=== PATIENT | female | born 1950 | race Caucasian/White ===

== ENCOUNTER 2024-09-06 12:09 | Inpatient (IN) ==
[2024-09-06 13:01] LABS: Basophils # (auto) 0.06 K/uL (0.00-0.20); Basophils % (auto) 0.8 %; Eosinophils # (auto) 0.16 K/uL (0.00-0.50); Eosinophils % (auto) 2.1 %; Hematocrit (blood only) 33.8 % (37.0-47.0); Hemoglobin 12.3 g/dl (12.0-16.0); Immature Granulocytes # (auto) 0.08 K/uL (0.01-0.20); Immature Granulocytes % (auto) 1.1 %; Lymphocytes # (auto) 1.93 K/uL (1.20-3.40); Lymphocytes % (auto) 25.7 %; Mean Corpuscular Hgb Conc 36.4 g/dL (32.0-36.0); Mean Platelet Volume 9.3 fL (9.4-12.4); Monocytes # (auto) 0.76 K/uL (0.11-0.59); Monocytes % (auto) 10.1 %; Neutrophils # (auto) 4.52 K/uL (1.40-6.50); Neutrophils % (auto) 60.2 %; Platelet Count 332 K/uL (130-400); RDW Coefficient of Variation 13.4 % (11.5-14.5); Red Blood Count 3.84 M/uL (4.20-5.40); White Blood Count 7.51 K/ul (4.8-10.8)
[2024-09-06 13:18] LABS: Albumin Globulin Ratio 1.1 (0.9-2); Albumin Level 3.5 gm/dl (3.4-5.0); Bilirubin,Total 0.4 mg/dl (0.2-1.0); Calcium 9.5 mg/dl (8.6-10.3); Globulin 3.3 gm/dl (2.5-4.0); Potassium 3.8 mmol/L (3.5-5.1); Total Protein 6.8 gm/dl (6.0-8.3)
[2024-09-06] MEDS ORDERED: VANCOMYCIN CONSULT ACTIVE PRN (14:07)
--- NOTE | 2024-09-06 14:12 | Emergency Department Note ---
History of Present Illness General Chief complaint: Referred by Doctor Stated complaint: REF BY DOC,NEED IV ANTIBOTIC Time Seen by Provider: 09/06/24 13:59 History of Present Illness This is a 74-year-old female who presents to the emergency department via private vehicle referred by PCP for "IV antibiotics/admission". The patient notes that 1 week ago she began with a small spot to the right anterior pretibial soft tissues. No trauma. No injury. She was traveling and was in [place]. She notes this past Friday the area continued to enlarge more and more. Pain was also increasing in the right anterior pretibial soft tissues. She does have some photodocumentation of this progression. She notes that morning she had fevers, chills and saw PCP. She was prescribed Keflex. She also had ceftriaxone dose on Friday, again Friday with home health at home and then ertapenem yesterday. She had a follow-up today with PCP and was referred in noting continuation of symptoms despite antibiotic therapy in the outpatient setting. Patient notes Tmax 101.5 F, last of which was on Friday. She notes she is otherwise healthy and denies any pertinent past medical history, surgeries or allergies. Currently on losartan and levothyroxine. Home Medications Medication Instructions Recorded Confirmed Type levothyroxine 75 mcg capsule 75 mcg PO DAILY 09/25/23 09/06/24 History dgldjjb-grusdzein-ebxuijm D2 500 1 tab PO DAILY 09/06/24 09/06/24 History mg-50 mg-100 unit chewable tablet losartan 50 mg tablet 50 mg PO DAILY 09/06/24 09/06/24 History Allergies Allergy/AdvReac Type Severity Reaction Status Date / Time No Known Allergies Allergy Verified 09/25/23 11:20 Past Med/Surg History Problem List (Updated 09/06/24 @ 23:39 by Lj Yoder PA-C) Cellulitis of right lower extremity (Acute) Medical History (Updated 09/06/24 @ 23:39 by Lj Yoder PA-C) Hypertension Family history of melanoma History of nonmelanoma skin cancer Age-related osteoporosis without current pathological fracture Actinic keratoses Dyslipidemia Hypothyroidism Surgical History (Updated 09/06/24 @ 14:34 by CALIXTO Rodriguez) H/O colonoscopy Family History (Updated 09/06/24 @ 14:35 by CALIXTO Rodriguez) Mother , 92y Cancer skin cancer Brother Diabetes Social History (Updated 09/06/24 @ 15:44 by CALIXTO Rodriguez) Smoking Status: Never smoker Hx Alcohol Use: No Hx Substance Use: No Preferred Language: Northern Irish Communication Ability: Effective 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 Beliefs That Will Affect Care: None Current Living Situation: Spouse current occupational status: retired Other Information That Helps Us Care for You: 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: Yes Safety Concerns: Feels Safe At This Time Assistive Devices: Glasses Review of Systems A total of 10 systems reviewed and were otherwise negative Physical Exam Vital Signs Vital Signs - 24 hr 09/06/24 12:26 09/06/24 14:00 Temperature 36.9 C Temperature Source Oral Pulse Rate 68 Respiratory Rate 16 Respiratory Effort / Characteristics Non-Labored Spontaneous Respiratory Depth Normal Blood Pressure 153/97 H Blood Pressure Mean 115 Pulse Oximetry 96 Oxygen Delivery Method Room Air Sepsis Recent Fever Within 48 Hours No Sepsis New/Unexplained Change in Mental Status No Sepsis Action Taken by Nursing No Action Required VITAL SIGNS - Vital signs and nursing notes were reviewed. Stable. GENERAL -74-year-old female appearing her stated age who is in no acute distress. Communicates well with provider and answers questions appropriately. SKIN -there is an area of erythema noted to the right anterior pretibial soft tissues with a central, 1 cm scabbed region. Skin marking pen does surround the erythematous regions in different tiers as there are different shades of erythema. No crepitus. No fluctuance. No active drainage. Please see picture below. Verbal consent was obtained prior to obtaining the picture. HEAD - NC/AT. EYES - PERRL with EOMI bilaterally. Sclera anicteric. NOSE - Midline and without cyanosis. No epistaxis or purulent drainage noted. MOUTH/OROPHARYNX - Without perioral cyanosis. NECK - Neck with FROM. No nuchal rigidity. LUNGS - CTA CARDIAC - RRR ABDOMEN - Abdominal contour normal without pulsations or visible masses. BS normoactive all four quadrants. No tenderness, palpable masses, hepatosplenomegaly, or ascites noted. EXTREMITIES - No clubbing or peripheral cyanosis. +5/5 strength noted in UE/LE bilaterally. NEUROLOGIC - Cranial nerves II through XII grossly intact. PSYCH -alert, oriented and pleasant on exam Course Administered Medications Heparin Sodium (Porcine) (Heparin Sod 5,000 Unit/0.5 Ml Vial) 5,000 units SQ Q12 VI Stop: 10/06/24 20:59 Last Admin: 09/06/24 21:31 Dose: 5,000 units Documented By: MELINDA Cefazolin Sodium (Ancef 2000mg) 2,000 mg in 15 mls @ 3.75 mls/min IV Q8H VI Stop: 09/13/24 22:59 Last Admin: 09/06/24 23:10 Dose: 3.75 mls/min Documented By: MELINDA Doxycycline Hyclate 100 mg/ (Dextrose) 100 mls @ 50 mls/hr IV Q12H VI Stop: 09/16/24 19:29 Last Infusion: 09/06/24 21:54 Dose: Infused Documented By: Admin: 09/06/24 19:52 Dose: 50 mls/hr Documented By: KERLINE Discontinued Medications Ceftriaxone Sodium (Rocephin) 2,000 mg in 50 mls @ 100 mls/hr IV NOW STA Stop: 09/06/24 14:36 Last Infusion: 09/06/24 17:28 Dose: Infused Documented By: Admin: 09/06/24 15:13 Dose: 100 mls/hr Documented By: KERLINE Vancomycin HCl 1,500 mg/ (Sodium Chloride) 530 mls @ 200 mls/hr IV NOW ONE Stop: 09/06/24 16:45 Last Infusion: 09/06/24 19:22 Dose: Infused Documented By: Admin: 09/06/24 15:05 Dose: 200 mls/hr Documented By: KERLINE Cefazolin Sodium (Ancef 2000mg) 2,000 mg in 15 mls @ 3.75 mls/min IV Q8H VI Stop: 09/13/24 15:14 Last Admin: 09/06/24 16:33 Dose: Not Given Documented By: KERLINE Medical Decision Making Laboratory Data 09/06/24 12:35 09/06/24 12:35 Lab Results 09/06/24 09/06/24 Range/Units 12:35 14:47 WBC 7.51 (4.8-10.8) K/ul RBC 3.84 L (4.20-5.40) M/uL Hgb 12.3 (12.0-16.0) g/dl Hct 33.8 L (37.0-47.0) % MCV 88.0 (80.0-100.0) fL MCH 32.0 (25.0-34.0) pg MCHC 36.4 H (32.0-36.0) g/dL RDW Std Deviation 43.0 (36.4-46.3) fL RDW Coeff of Amarilis 13.4 (11.5-14.5) % Plt Count 332 (130-400) K/uL MPV 9.3 L (9.4-12.4) fL Immature Gran % (Auto) 1.1 % Neut % (Auto) 60.2 % Lymph % (Auto) 25.7 % [place] % (Auto) 10.1 % Eos % (Auto) 2.1 % Baso % (Auto) 0.8 % Neut # (Auto) 4.52 (1.40-6.50) K/uL Lymph # (Auto) 1.93 (1.20-3.40) K/uL [place] # (Auto) 0.76 H (0.11-0.59) K/uL Eos # (Auto) 0.16 (0.00-0.50) K/uL Baso # (Auto) 0.06 (0.00-0.20) K/uL Immature Gran # (Auto) 0.08 (0.01-0.20) K/uL Sodium 135 L (136-145) mmol/L Potassium 3.8 (3.5-5.1) mmol/L Chloride 102 (98-107) mmol/L Carbon Dioxide 25 (21-32) mmol/L Anion Gap 8 (3-11) BUN 15 (6-23) mg/dl Creatinine 0.75 (0.6-1.2) mg/dl Est Cr Clr Drug Dosing 64.0 ml/min eGFR 83.49 BUN/Creatinine Ratio 20.0 (10-20) Glucose 140 H (70-99(Fasting)) mg/dl Calcium 9.5 (8.6-10.3) mg/dl Total Bilirubin 0.4 (0.2-1.0) mg/dl AST 20 (13-39) U/L ALT 20 (7-52) U/L Alkaline Phosphatase 101 (34-104) U/L Total Protein 6.8 (6.0-8.3) gm/dl Albumin 3.5 (3.4-5.0) gm/dl Globulin 3.3 (2.5-4.0) gm/dl Albumin/Globulin Ratio 1.1 (0.9-2) Procalcitonin < 0.02 (0-0.5) ng/ml Lyme Disease Screen Equivocal H (Negative) Lyme Tier 2 IgG Confirm Positive H (Negative) Lyme Tier 2 IgM Confirm Positive H (Negative) Imaging Data Radiologist's Impression: Venous Doppler Study 09/06/24 14:09 EXAM: US venous doppler LE RT CLINICAL HISTORY: Right leg cellulitis, edema, rule out DVT. TECHNIQUE: Ultrasound examination of the right lower extremity veins was performed in real time and duplex. One or more of the following were performed: spectral analysis, resistive index, waveform analysis, and pulsed Doppler. COMPARISON: None. FINDINGS: Normal phasic, non-pulsatile, and spontaneous flow is noted in the right common femoral, superficial femoral, popliteal and posterior, anterior tibial, and peroneal veins. Visualized veins of the right lower extremity demonstrate normal compressibility. No sonographic evidence of acute deep vein thrombosis (DVT) is detected in the visualized veins of the right lower extremity. Compression and Augmentation: All evaluated veins compress fully with applied transducer pressure. Augmentation of venous flow is noted with distal compression. IMPRESSION: No sonographic evidence of acute DVT detected in right common femoral, superficial femoral, popliteal, and posterior, anterior tibial, and peroneal veins, at the time of examination. Disclaimer: DVT could be missed early in the disease when clot burden is minimal. For patients with moderate and high pretest probability of DVT and negative ultrasound, the [employer] clinical guidelines recommend testing with a D-dimer assay or repeat ultrasound in 5-7 days. If symptoms worsen, the Society of Radiologists in ultrasound recommends repeating ultrasound even earlier. Electronically signed by Raymundo Taylor 09-06-2024 4:59 PM Tibia/Fibula X-Ray 09/06/24 14:10 XR tibia fibula RT 2V CLINICAL HISTORY: R leg infection COMPARISON: None FINDINGS: No fracture or dislocation. No radiopaque foreign body. No evidence of osteomyelitis. IMPRESSION: No acute osseous finding seen. ACT 112: Negative or not required by law. Electronically signed by: Luis Jay M.D. 09/06/2024 2:34 PM MDM Narrative Patient was seen and evaluated as above in room C1. Review was performed of triage nursing notes and vital signs. After obtaining a thorough history and physical examination the above work up was performed. Patient presents to us today for evaluation of ongoing right lower extremity edema and erythema. Please refer to the picture above in the PE section. Patient has had outpatient antibiotics and continues with symptoms. She was referred in for IV antibiotics. Options of care were discussed with the patient. IV access was established. Labs were drawn. There is no leukocytosis or concerning anemia. No emergent metabolic disturbance. Mild hyperglycemia 140 and hyponatremia 135. Noting the duration of patient's symptoms despite outpatient therapy I do believe that further evaluation and management in the inpatient setting is warranted. IV ceftriaxone and IV vancomycin ordered. She has only had 2 doses of ceftriaxone thus far. I do believe is reasonable to continue but add MRSA coverage. I did order IV ceftriaxone as well as IV vancomycin for broad coverage. It is felt that the benefit of the medication outweighed risk. Case discussed with the hospitalist service. Please refer to further documentation regarding her stay. The x-ray and ultrasound were pending at time of discussion with the hospitalist, but were reviewed and ultrasound negative for DVT. X-ray negative for soft tissue gas or radiographic evidence of osteomyelitis per my interpretation. Please refer to further documentation regarding her stay. At this time Lyme testing is pending as are blood cultures. GCS: 15 In the evaluation and treatment of this patient the following differential diagnoses were entertained: Necrotizing fasciitis, osteomyelitis, cellulitis, abscess, among others. Impression & Plan Cellulitis of right lower extremity Discharge Plan Visit Data Chief Complaint: Referred by Doctor Stated Complaint: REF BY DOC,NEED IV ANTIBOTIC ED Provider: Josef Verde ED Midlevel Provider: Lj Yoder Discharge Problem: Cellulitis of right lower extremity Patient Disposition: Admitted As Inpatient Condition: Good Discharge Instructions Interventions: ED Discharge Assessment Last Done: 09/06/24 19:07
--- NOTE | 2024-09-06 14:35 | XRay Report ---
XR tibia fibula RT 2V CLINICAL HISTORY: R leg infection COMPARISON: None FINDINGS: No fracture or dislocation. No radiopaque foreign body. No evidence of osteomyelitis. IMPRESSION: No acute osseous finding seen. ACT 112: Negative or not required by law. Electronically signed by: Luis Jay M.D. 09/06/2024 2:34 PM
--- NOTE | 2024-09-06 14:50 | History & Physical Report ---
Date of Service September 06, 2024 Assessment & Plan (1) Cellulitis of right lower extremity: (2) Hypertension: (3) Hypothyroidism: Plan 74 year old female with PMH significant for hypertension, hypothyroidism, dyslipidemia, osteoporosis, and history of nonmelanoma skin cancer who presents to the ED today and is being admitted for worsening right lower leg cellulitis. Cellulitis RLE Unresponsive to oral keflex, IM rocephin, and IM ertapenem outpatient No leukocytosis and vitals stable, patient febrile at home with last fever 2 days ago Lyme screen pending Received ceftriaxone and vancomycin in ED Order cefazolin q8hr, discontinue vanco Tibia/fibula x-ray negative for fracture Obtain RLE duplex to rule out DVT Follow blood cultures Elevate RLE Hypertension Continue losartan Hypothyroidism Continue levothyroxine DVT Prophylaxis: SCDs to LLE Code Status: FULL CODE - As per discussion at bedside with the patient. PCP: Odilia Denny DO Disposition: admit to med surg Patient seen in collaboration with Dr Beebe. Please see addendum. I spent a total of 60 minutes coordinating, documenting and providing care for this patient excluding time spent in the performance of separately billed services or time spent by another provider/QHP. Admission and Anticipated Discharge Date Admission Date: 09/06/2024 History of Present Illness Chief Complaint: cellulitis Primary Care Provider: Odilia Denny DO 74 year old female with PMH significant for hypertension, hypothyroidism, dyslipidemia, osteoporosis, and history of nonmelanoma skin cancer who presents to the ED today with right lower leg cellulitis. Patient reports she noticed a small red area on her right he about 10 days ago while in [place] that she initially thought was a mosquito bite. She denies any trauma to her skin. The area then increased in redness, itchiness, warmth, and became painful to the touch. She was initially prescribed Keflex and was icing the area and applying cortisone and Neosporin without relief. Then she developed a fever of 101F and body aches, which prompted her to seek evaluation. She was seen by her PCP on Sunday 09/03 who administered IM Rocephin and arranged for two additional home doses through [facility] over the weekend. Yesterday, the home nurse noted worsening redness and swelling and administered Ertapenem IM instead of Rocephin. Patient had a follow up visit today with her PCP and was referred to the ED due to no improvement. She reports her last fever was on Friday night and she felt in her usual state of health yesterday. Notes a slight sore throat that is relieved by fluids. Allergies Allergy/AdvReac Type Severity Reaction Status Date / Time No Known Allergies Allergy Verified 09/25/23 11:20 Home Medications Medication Instructions Recorded Confirmed Type levothyroxine 75 mcg capsule 75 mcg PO DAILY 09/25/23 09/06/24 History ckkippx-tpqwzkfyk-ycnhukj D2 500 1 tab PO DAILY 09/06/24 09/06/24 History mg-50 mg-100 unit chewable tablet losartan 50 mg tablet 50 mg PO DAILY 09/06/24 09/06/24 History Past Med/Surg History Problem List (Updated 09/06/24 @ 14:49 by CALIXTO Rodriguez) Cellulitis of right lower extremity Medical History (Updated 09/06/24 @ 14:49 by CALIXTO Rodriguez) Hypertension Family history of melanoma History of nonmelanoma skin cancer Age-related osteoporosis without current pathological fracture Actinic keratoses Dyslipidemia Hypothyroidism Surgical History (Updated 09/06/24 @ 14:34 by CALIXTO Rodriguez) H/O colonoscopy Family History (Updated 09/06/24 @ 14:35 by CALIXTO Rodriguez) Mother , 92y Cancer skin cancer Brother Diabetes Social History (Updated 09/06/24 @ 15:44 by CALIXTO Rodriguez) Smoking Status: Never smoker Hx Alcohol Use: Yes Preferred Language: Upper Sorbian Communication Ability: Effective Current Living Situation: Spouse current occupational status: retired other: retired EMT Feels Safe at Home: Yes Review of Systems Review of Systems: All systems reviewed & are unremarkable except as noted in HPI & below Physical Exam Physical Exam: General/Psych: WD/WN, sitting up in bed, NAD, conversing easily Head: normocephalic, atraumatic Eyes: normal inspection, PERRL, conjunctivae pink, anicteric sclerae ENT: external ear and nose normal, oropharynx normal Neck: normal visual inspection, trachea midline, no lymphadenopathy Respiratory: normal respiratory effort, lungs clear to auscultation, no wheeze/rales/rhonchi, no accessory muscle use Cardiovascular: regular rate and rhythm, no murmur/rub/gallop, no JVD Extremities: no cyanosis or clubbing, normal peripheral pulses, 1+ edema to RLE Abdomen/GI: normal bowel sounds, soft, nontender Neurologic/MSK: A+Ox3, motor strength 5/5, moves all extremities Skin: erythematous area with central discoloration to right lower extremity with warmth - please refer to ER visit note from Lj Yoder for picture Results & Data Results & Data Vital Signs (Past 12 Hours) Vital Signs Pulse Resp BP Pulse Ox O2 Del Method 09/06/24 12:26 68 16 153/97 H 96 Room Air Laboratory Results Short CBC 09/06/24 Range/Units 12:35 WBC 7.51 (4.8-10.8) K/ul Hgb 12.3 (12.0-16.0) g/dl Hct 33.8 L (37.0-47.0) % Plt Count 332 (130-400) K/uL BMP 09/06/24 12:35 Sodium 135 L Potassium 3.8 Chloride 102 Carbon Dioxide 25 BUN 15 Creatinine 0.75 Glucose 140 H Calcium 9.5 Liver Function 09/06/24 Range/Units 12:35 Total Bilirubin 0.4 (0.2-1.0) mg/dl AST 20 (13-39) U/L ALT 20 (7-52) U/L Alkaline Phosphatase 101 (34-104) U/L Albumin 3.5 (3.4-5.0) gm/dl I have independently reviewed and interpreted patient's admitting labs including CBC and CMP. Diagnostic Findings Tibia/Fibula X-Ray 09/06/24 14:10 XR tibia fibula RT 2V CLINICAL HISTORY: R leg infection COMPARISON: None FINDINGS: No fracture or dislocation. No radiopaque foreign body. No evidence of osteomyelitis. IMPRESSION: No acute osseous finding seen. ACT 112: Negative or not required by law. Electronically signed by: Luis Jay M.D. 09/06/2024 2:34 PM Code Status & VTE Plan Code Status DNR/DNI Supervising Physician Co-Signing Physician Notes Attending addendum: The patient was seen and examined in emergency room She is coming with cellulitis involving the right anterior he following a bug bite a few days back Received Keflex, ceftriaxone and also 1 dose of ertapenem as an outpatient Feeling little better in the adjoining inflammation has been improving On examination No acute distress at rest Afebrile and hemodynamically stable. Physical examination unremarkable except examination of the right lower extremity showed A bite keegan with a scab and adjoining area of inflammation and redness about 4 to 5 centimeters square Minimal edema involving the right ankle Her admission labs and imaging studies reviewed No evidence of abscess on x-ray and awaiting result of ultrasound to rule out DVT Received IV ertapenem and a dose of vancomycin in the emergency room Cultures have been taken and will start cefazolin and discontinue vancomycin Lyme titer is positive IgG and IgM-will give oral Doxycycline Lovenox for DVT prophylaxis Assessment and plan Bug bite right anterior he with adjoining cellulitis not been getting much better as an outpatient Clinically better since yesterday but she has had fever Will start intravenous cefazolin, elevate the legs and also check for serology for tick bites Agree with assessment and plan as outlined above by Alejandra DE LUNA and take the full responsibility of care in the hospital DR Lit Beebe
[2024-09-06] MEDS: VANCOMYCIN HCL 1,500 MG in SODIUM CHLORIDE 0.9% 500 ML IV ONE (15:05)
[2024-09-06] MEDS: cefTRIAXone SODIUM 2,000 MG/50 ML BAG IV STA (15:13)
[2024-09-06] MEDS ORDERED: ACETAMINOPHEN 325 MG TAB PO PRN (15:14)
[2024-09-06 16:27] LABS: Lyme Screen Rflx Confirmation Equivocal (Negative)
[2024-09-06] MEDS: ceFAZolin 2000MG 2,000 MG/15 ML SYR IV SCH ×2 (16:33→23:10)
--- NOTE | 2024-09-06 16:59 | Ultrasound Report ---
EXAM: US venous doppler LE RT CLINICAL HISTORY: Right leg cellulitis, edema, rule out DVT. TECHNIQUE: Ultrasound examination of the right lower extremity veins was performed in real time and duplex. One or more of the following were performed: spectral analysis, resistive index, waveform analysis, and pulsed Doppler. COMPARISON: None. FINDINGS: Normal phasic, non-pulsatile, and spontaneous flow is noted in the right common femoral, superficial femoral, popliteal and posterior, anterior tibial, and peroneal veins. Visualized veins of the right lower extremity demonstrate normal compressibility. No sonographic evidence of acute deep vein thrombosis (DVT) is detected in the visualized veins of the right lower extremity. Compression and Augmentation: All evaluated veins compress fully with applied transducer pressure. Augmentation of venous flow is noted with distal compression. IMPRESSION: No sonographic evidence of acute DVT detected in right common femoral, superficial femoral, popliteal, and posterior, anterior tibial, and peroneal veins, at the time of examination. Disclaimer: DVT could be missed early in the disease when clot burden is minimal. For patients with moderate and high pretest probability of DVT and negative ultrasound, the [employer] clinical guidelines recommend testing with a D-dimer assay or repeat ultrasound in 5-7 days. If symptoms worsen, the Society of Radiologists in ultrasound recommends repeating ultrasound even earlier. Electronically signed by Raymundo Taylor 09-06-2024 4:59 PM
[2024-09-06 18:55] LABS: Lyme Ab IgG 2nd Tier Confirm Positive (Negative)
[2024-09-06 18:56] LABS: Lyme Ab IgM 2nd Tier Confirm Positive (Negative)
[2024-09-06] MEDS: DOXYCYCLINE HYCLATE 100 MG in DEXTROSE 5% MINI-B 100 ML IV SCH (19:52)
[2024-09-06] MEDS: HEPARIN SOD 5,000 UNIT/0.5 ML VIAL SQ SCH (21:31)
[2024-09-07] MEDS: VANCOMYCIN 750 MG in SODIUM CHLORIDE 0.9% 250 ML IV SCH (03:09)
[2024-09-07 07:15] LABS: Hematocrit (blood only) 32.8 % (37.0-47.0); Mean Corpuscular Hemoglobin 29.3 pg (25.0-34.0); Mean Corpuscular Hgb Conc 33.5 g/dL (32.0-36.0); Mean Corpuscular Volume 87.5 fL (80.0-100.0); Mean Platelet Volume 8.8 fL (9.4-12.4); Platelet Count 314 K/uL (130-400); RDW Coefficient of Variation 13.4 % (11.5-14.5); RDW Standard Deviation 43.3 fL (36.4-46.3); Red Blood Count 3.75 M/uL (4.20-5.40); White Blood Count 6.82 K/ul (4.8-10.8)
[2024-09-07 07:34] LABS: Calcium 8.8 mg/dl (8.6-10.3); Potassium 3.7 mmol/L (3.5-5.1)
[2024-09-07 07:39] LABS: BUN Creatinine Ratio 15.9 (10-20); Creatinine Clr Calc Pharmacy 69.6 ml/min
--- NOTE | 2024-09-07 12:28 | Hospitalist Progress Note ---
Date of Service September 07, 2024 Assessment & Plan (1) Cellulitis of right lower extremity: (2) Hypertension: (3) Hypothyroidism: Plan 74 year old female with PMH significant for hypertension, hypothyroidism, dyslipidemia, osteoporosis, and history of nonmelanoma skin cancer who presents to the ED today and is being admitted for worsening right lower leg cellulitis. Cellulitis RLE Equivocal Lyme screen test Unresponsive to oral keflex, IM rocephin, and IM ertapenem outpatient No leukocytosis and vitals stable, patient febrile at home with last fever 2 days ago Lyme screen Equivocal Venous duplex negative Continue on current antibiotic with cefazolin and doxycycline. Plan to treat cellulitis for at least 7 days of antibiotic; also discussed with patient to empirically treat Lyme with 10 days of doxycycline which she is agreeable with. Follow-up on blood culture Hypertension Continue losartan Hypothyroidism Continue levothyroxine DVT Prophylaxis: SCDs to LLE Code Status:DNR/DNI Please note the above document was generated using voice recognition software. It may contain grammatical, syntax or spelling errors. Any formal questions or concerns about the content, text or information contained within the body of this dictation should be directly addressed to the provider for clarification Admission and Anticipated Discharge Date Admission Date: September 06, 2024 Subjective Patient reports that she is feeling much better. Area of redness has also improved. No significant events overnight Review of Systems Review of Systems: All systems reviewed & are unremarkable except as noted in Subjective Physical Exam Physical Exam: General/Psych: WD/WN, sitting up in bed, NAD, conversing easily Respiratory: normal respiratory effort, lungs clear to auscultation, no wheeze/rales/rhonchi, no accessory muscle use Cardiovascular: regular rate and rhythm, no murmur/rub/gallop, no JVD Abdomen/GI: normal bowel sounds, soft, nontender Neurologic/MSK: A+Ox3, motor strength 5/5, moves all extremities Skin: area of redness has improved compared to previous day. Results & Data Results & Data Vital Signs (Past 12 Hours) Vital Signs Temp Pulse Resp BP Pulse Ox O2 Del Method 09/07/24 07:47 36.8 C 63 18 173/84 H 94 Room Air
--- NOTE | 2024-09-08 11:08 | Hospitalist Progress Note ---
Date of Service September 08, 2024 Assessment & Plan (1) Cellulitis of right lower extremity: (2) Hypertension: (3) Hypothyroidism: Plan 74 year old female with PMH significant for hypertension, hypothyroidism, dyslipidemia, osteoporosis, and history of nonmelanoma skin cancer who presents to the ED today and is being admitted for worsening right lower leg cellulitis. Cellulitis RLE Equivocal Lyme screen test --Leg X ray:No acute osseous finding seen. --Venous Doppler:No sonographic evidence of acute DVT detected in right common femoral, superficial femoral, popliteal, and posterior, anterior tibial, and peroneal veins --Blood Cultures: Negative to date --Lyme screen Equivocal --Poor responsive to oral keflex, IM rocephin, and IM ertapenem outpatient -- Continue cefazolin, doxycycline> transition to oral antibiotics to complete the course Plan to discharge home today Hypertension Continue losartan Hypothyroidism Continue levothyroxine DVT Px: SCDs Code Status: DNR/DNI Admission and Anticipated Discharge Date Admission Date: September 07, 2024 Subjective Patient is seen and examined at bedside Right leg erythema, pain much improved Denies any chest pain, dyspnea, nausea, vomiting, abdominal pain Prefers to be discharged home today Review of Systems Review of Systems: All systems reviewed & are unremarkable except as noted in Subjective Physical Exam Physical Exam: Physical Exam: Vitals signs as noted above General Appearance:Moderately built and nourished, no apparent distress Head: normocephalic, Atraumatic Eyes: normal inspection, EOMI Neck: supple, Trachea midline Respiratory/Chest: Normal breath sounds, CTA, No accessory muscle use Cardiovascular: S1, S2, No murmur Abdomen/GI:Soft, Non tender, Bowel sounds present Extremities/Musculoskeletal:normal inspection, no edema, R leg erythema improving, non tender Neurologic/Psych:AAOX3, grossly no focal neurological deficits Skin: normal color, warm Results & Data Results & Data Vital Signs (Past 12 Hours) Vital Signs Temp Pulse Resp BP Pulse Ox O2 Del Method 09/08/24 07:58 36.6 C 61 17 150/89 H 95 Room Air
--- NOTE | 2024-09-08 11:25 | Discharge Summary ---
Date of Service September 08, 2024 Admission HPI Per Admitting Provider 74 year old female with PMH significant for hypertension, hypothyroidism, dyslipidemia, osteoporosis, and history of nonmelanoma skin cancer who presents to the ED today with right lower leg cellulitis. Patient reports she noticed a small red area on her right he about 10 days ago while in [place] that she initially thought was a mosquito bite. She denies any trauma to her skin. The area then increased in redness, itchiness, warmth, and became painful to the touch. She was initially prescribed Keflex and was icing the area and applying cortisone and Neosporin without relief. Then she developed a fever of 101F and body aches, which prompted her to seek evaluation. She was seen by her PCP on Sunday 09/03 who administered IM Rocephin and arranged for two additional home doses through [facility] over the weekend. Yesterday, the home nurse noted worsening redness and swelling and administered Ertapenem IM instead of Rocephin. Patient had a follow up visit today with her PCP and was referred to the ED due to no improvement. She reports her last fever was on Friday night and she felt in her usual state of health yesterday. Notes a slight sore throat that is relieved by fluids. Admission Exam Per Admitting Provider General/Psych: WD/WN, sitting up in bed, NAD, conversing easily Head: normocephalic, atraumatic Eyes: normal inspection, PERRL, conjunctivae pink, anicteric sclerae ENT: external ear and nose normal, oropharynx normal Neck: normal visual inspection, trachea midline, no lymphadenopathy Respiratory: normal respiratory effort, lungs clear to auscultation, no wheeze/rales/rhonchi, no accessory muscle use Cardiovascular: regular rate and rhythm, no murmur/rub/gallop, no JVD Extremities: no cyanosis or clubbing, normal peripheral pulses, 1+ edema to RLE Abdomen/GI: normal bowel sounds, soft, nontender Neurologic/MSK: A+Ox3, motor strength 5/5, moves all extremities Skin: erythematous area with central discoloration to right lower extremity with warmth - please refer to ER visit note from Lj Yoder for picture Principal Diagnosis Right leg cellulitis Suspected Lyme's disease Discharge Data Allergies Allergy/AdvReac Type Severity Reaction Status Date / Time No Known Allergies Allergy Verified 09/25/23 11:20 Consultations 09/06/24 14:13 ED Decision to Admit Stat Ordered Studies Laboratory Results WBC 6.82 K/ul (4.8-10.8) 09/07/24 06:58 RBC 3.75 M/uL (4.20-5.40) L 09/07/24 06:58 Hgb 11.0 g/dl (12.0-16.0) L 09/07/24 06:58 Hct 32.8 % (37.0-47.0) L 09/07/24 06:58 MCV 87.5 fL (80.0-100.0) 09/07/24 06:58 MCH 29.3 pg (25.0-34.0) 09/07/24 06:58 MCHC 33.5 g/dL (32.0-36.0) 09/07/24 06:58 RDW Std Deviation 43.3 fL (36.4-46.3) 09/07/24 06:58 RDW Coeff of Amarilis 13.4 % (11.5-14.5) 09/07/24 06:58 Plt Count 314 K/uL (130-400) 09/07/24 06:58 MPV 8.8 fL (9.4-12.4) L 09/07/24 06:58 Immature Gran % (Auto) 1.1 % 09/06/24 12:35 Neut % (Auto) 60.2 % 09/06/24 12:35 Lymph % (Auto) 25.7 % 09/06/24 12:35 [place] % (Auto) 10.1 % 09/06/24 12:35 Eos % (Auto) 2.1 % 09/06/24 12:35 Baso % (Auto) 0.8 % 09/06/24 12:35 Neut # (Auto) 4.52 K/uL (1.40-6.50) 09/06/24 12:35 Lymph # (Auto) 1.93 K/uL (1.20-3.40) 09/06/24 12:35 [place] # (Auto) 0.76 K/uL (0.11-0.59) H 09/06/24 12:35 Eos # (Auto) 0.16 K/uL (0.00-0.50) 09/06/24 12:35 Baso # (Auto) 0.06 K/uL (0.00-0.20) 09/06/24 12:35 Immature Gran # (Auto) 0.08 K/uL (0.01-0.20) 09/06/24 12:35 Sodium 138 mmol/L (136-145) 09/07/24 06:58 Potassium 3.7 mmol/L (3.5-5.1) 09/07/24 06:58 Chloride 105 mmol/L (98-107) 09/07/24 06:58 Carbon Dioxide 28 mmol/L (21-32) 09/07/24 06:58 Anion Gap 5 (3-11) 09/07/24 06:58 BUN 11 mg/dl (6-23) 09/07/24 06:58 Creatinine 0.69 mg/dl (0.6-1.2) 09/07/24 06:58 Est Cr Clr Drug Dosing 69.6 ml/min 09/07/24 06:58 eGFR 91.01 09/07/24 06:58 BUN/Creatinine Ratio 15.9 (10-20) 09/07/24 06:58 Glucose 102 mg/dl (70-99(Fasting)) H 09/07/24 06:58 Calcium 8.8 mg/dl (8.6-10.3) 09/07/24 06:58 Total Bilirubin 0.4 mg/dl (0.2-1.0) 09/06/24 12:35 AST 20 U/L (13-39) 09/06/24 12:35 ALT 20 U/L (7-52) 09/06/24 12:35 Alkaline Phosphatase 101 U/L (34-104) 09/06/24 12:35 Total Protein 6.8 gm/dl (6.0-8.3) 09/06/24 12:35 Albumin 3.5 gm/dl (3.4-5.0) 09/06/24 12:35 Globulin 3.3 gm/dl (2.5-4.0) 09/06/24 12:35 Albumin/Globulin Ratio 1.1 (0.9-2) 09/06/24 12:35 Procalcitonin < 0.02 ng/ml (0-0.5) 09/06/24 14:47 Lyme Disease Screen Equivocal (Negative) H 09/06/24 14:47 Lyme Tier 2 IgG Confirm Positive (Negative) H 09/06/24 14:47 Lyme Tier 2 IgM Confirm Positive (Negative) H 09/06/24 14:47 Impressions Venous Doppler Study 09/06/24 14:09 EXAM: US venous doppler LE RT CLINICAL HISTORY: Right leg cellulitis, edema, rule out DVT. TECHNIQUE: Ultrasound examination of the right lower extremity veins was performed in real time and duplex. One or more of the following were performed: spectral analysis, resistive index, waveform analysis, and pulsed Doppler. COMPARISON: None. FINDINGS: Normal phasic, non-pulsatile, and spontaneous flow is noted in the right common femoral, superficial femoral, popliteal and posterior, anterior tibial, and peroneal veins. Visualized veins of the right lower extremity demonstrate normal compressibility. No sonographic evidence of acute deep vein thrombosis (DVT) is detected in the visualized veins of the right lower extremity. Compression and Augmentation: All evaluated veins compress fully with applied transducer pressure. Augmentation of venous flow is noted with distal compression. IMPRESSION: No sonographic evidence of acute DVT detected in right common femoral, superficial femoral, popliteal, and posterior, anterior tibial, and peroneal veins, at the time of examination. Disclaimer: DVT could be missed early in the disease when clot burden is minimal. For patients with moderate and high pretest probability of DVT and negative ultrasound, the [employer] clinical guidelines recommend testing with a D-dimer assay or repeat ultrasound in 5-7 days. If symptoms worsen, the Society of [employer] in ultrasound recommends repeating ultrasound even earlier. Electronically signed by Raymundo Taylor 09-06-2024 4:59 PM Tibia/Fibula X-Ray 09/06/24 14:10 XR tibia fibula RT 2V CLINICAL HISTORY: R leg infection COMPARISON: None FINDINGS: No fracture or dislocation. No radiopaque foreign body. No evidence of osteomyelitis. IMPRESSION: No acute osseous finding seen. ACT 112: Negative or not required by law. Electronically signed by: Luis Jay M.D. 09/06/2024 2:34 PM Hospital Course (1) Cellulitis of right lower extremity: (2) Hypertension: (3) Hypothyroidism: Plan 74 year old female with PMH significant for hypertension, hypothyroidism, dyslipidemia, osteoporosis, and history of nonmelanoma skin cancer who presents to the ED today and is being admitted for worsening right lower leg cellulitis. Cellulitis RLE Equivocal Lyme screen test --Leg X ray:No acute osseous finding seen. --Venous Doppler:No sonographic evidence of acute DVT detected in right common femoral, superficial femoral, popliteal, and posterior, anterior tibial, and peroneal veins --Blood Cultures: Negative to date --Lyme screen Equivocal --Poor responsive to oral keflex, IM rocephin, and IM ertapenem outpatient -- Continue cefazolin, doxycycline> transition to oral antibiotics to complete the course Plan to discharge home today Hypertension Continue losartan Hypothyroidism Continue levothyroxine DVT Px: SCDs Code Status: DNR/DNI Total Time Total Time Spent Total Time Spent (In Minutes): 44 minutes Discharge Plan Discharge Items Patient Disposition: Home - Self-Care Reason For Visit: CELLULITIS Discharge Diagnosis: Right leg cellulitis Suspected Lyme's disease Condition on Discharge: Good Activity: Per Instructions section Exercise/Sports: Gradually increase as tolerated Non-emergency contact: Primary Care Provider Call non-emergency contact if: you have any medication questions, your symptoms worsen, your pain is concerning for you and you have a fever Follow-up/Referrals: Odilia Denny DO [Primary Care Provider] - (The office will call you with a follow up appointment.) Diet: Heart Healthy Addtl Attending Provider Instructions: Follow-up with your primary care physician in 1 week. -- Complete the antibiotic course doxycycline, Augmentin as prescribed. -- Your final blood cultures are pending at the time of discharge. Follow-up with your physician for results. Seek immediate medical attention if your symptoms reoccur or worsen Please review medication list provided on discharge for any medication changes as instructed. Please call if you have any questions or problems. You can reach a [facility] hospitalist on duty at [facility] 24 hours a day by calling [phone] Pending Studies at Discharge: Yes Studies:: blood cultures Stand-Alone Forms: My [facility], Smoking Cessation Medications and DC Order Prescriptions: New Advanced Probiotic 625 mg (10 billion cell) Capsule 1 cap PO DAILY Qty: 10 0RF doxycycline hyclate 100 mg tablet 100 mg PO BID Qty: 16 0RF amoxicillin-pot clavulanate [Augmentin] 500-125 mg tablet 1 tab PO BID Qty: 16 0RF Continued levothyroxine 75 mcg capsule 75 mcg PO DAILY losartan 50 mg tablet 50 mg PO DAILY [id number] 500-50-100 mg-mg-unit Tablet,Chewable 1 tab PO DAILY Rx Instructions: Pt takes [id number]-mg-unit Discharge Orders: Discharge Order (Routine); Ordered 09/08/24 Ordered By: Bruno Siegel Admission Data Admit Date/Time: 09/07/24 15:52 Attending Provider: Bruno Siegel Admit Provider: Angel Smart Primary Care Provider: Odilia Denny Other Providers: Beny Beebe
[2024-09-08] MEDS: ADVANCED PROBIOTIC 625 MG CAPSULE PO SCH (11:56)
== END 2024-09-08 12:16 | disposition home or self-care (01) | DRG 868 ==
LOC: EDINP 12:09 → ED 12:09 → SUATTDRO 15:14 → 3N 19:07 → SUATTDRO 09-07 15:52